=== PATIENT | male | born 2000 | race Caucasian/White ===

== ENCOUNTER 2023-06-25 01:24 | Emergency (ER) | payer BC, SELFPAY ==
[2023-06-25 01:26] VITALS: BP 174/114; PULSE 89; RESP 15; TEMP 36.4; O2SAT 100
--- NOTE | 2023-06-25 03:43 | ED.GENADULT ---
HPI - General Adult General Chief complaint: Animal Bite Stated complaint: cat bites to both hands Time Seen by Provider: 06/25/23 03:33 History of Present Illness HPI narrative: Patient 23-year-old gentleman who presents emergency department with chief complaint of cat bites to both hands. Patient reports he was at work and noticed a door open and saw several small cats. The patient reports that he had several scratches and small bites to his hands while interacting with the cats patient reports no large lacerations were unsure of last tetanus status Related Data Home Medications Medication Instructions Recorded Confirmed atorvastatin 20 mg tablet 20 mg PO DAILY 06/25/23 06/25/23 buspirone 10 mg tablet 10 mg PO DAILY 06/25/23 06/25/23 Allergies Allergy/AdvReac Type Severity Reaction Status Date / Time No Known Allergies Allergy Verified 06/25/23 04:16 Review of Systems Review of Systems: A 10 system review of systems was completed on the patient and is negative except for what is stated in the HPI. Nursing and ancillary documentation was reviewed. Exam Narrative: GENERAL: Well-appearing, well-nourished, and in no acute distress. HEAD: Normocephalic, atraumatic. EYES: PERRLA and EOMI. ENT: Nares clear, no rhinorrhea or epistaxis. Mucous membranes moist. NECK: Supple. CHEST: Clear to auscultation. No respiratory distress. HEART: Regular rate and rhythm. No murmur heard. Normal peripheral pulses. ABDOMEN: Soft, nontender, nondistended, normal active bowel sounds. EXTREMITIES: Normal range of motion. No edema. SKIN: Warm, dry, no rash. Multiple abrasions and small puncture wounds to hands NEURO: No focal deficits. Alert and oriented x3. PSYCH: Normal mood and affect. Course Vital Signs Vital signs: Vital Signs Temperature 36.4 C 06/25/23 01:26 Pulse Rate 89 06/25/23 01:26 Respiratory Rate 15 06/25/23 01:26 Blood Pressure 174/114 H 06/25/23 01:26 Pulse Oximetry 100 06/25/23 01:26 Oxygen Delivery Room Air 06/25/23 01:26 Temperature 36.4 C 06/25/23 01:26 Pulse Rate 89 06/25/23 01:26 Respiratory Rate 15 06/25/23 01:26 Blood Pressure 174/114 H 06/25/23 01:26 Pulse Oximetry 100 06/25/23 01:26 Oxygen Delivery Room Air 06/25/23 01:26 Medical Decision Making MDM Narrative Medical decision making narrative: Differential diagnosis includes feline bite, puncture wounds Denies patient was updated on her tetanus status and was started on Augmentin Patient was offered her rabies vaccine and patient has opted to not do rabies vaccine at this time Vital Signs Vital Signs: Vital Signs Temperature 36.4 C 06/25/23 01:26 Pulse Rate 89 06/25/23 01:26 Respiratory Rate 15 06/25/23 01:26 Blood Pressure 174/114 H 06/25/23 01:26 Pulse Oximetry 100 06/25/23 01:26 Oxygen Delivery Room Air 06/25/23 01:26 Temperature 36.4 C 06/25/23 01:26 Pulse Rate 89 06/25/23 01:26 Respiratory Rate 15 06/25/23 01:26 Blood Pressure 174/114 H 06/25/23 01:26 Pulse Oximetry 100 06/25/23 01:26 Oxygen Delivery Room Air 06/25/23 01:26 Discharge Plan Discharge Clinical Impression: Dog bite Patient Disposition: Home, Self-Care Condition: Stable Instructions: Antibiotic Form, Animal Bite (ED) Prescriptions: New amoxicillin-pot clavulanate 875-125 mg tablet 1 tablet PO Q12H 10 Days Qty: 20 0RF No Action buspirone [BuSpar] 10 mg Tablet 10 mg PO DAILY atorvastatin 20 mg Tablet 20 mg PO DAILY Follow-up/Referrals: PHYSICIAN NOT ON STAFF,NONSTAFF [Non-Staff] - Kelby Salguero MD [Physician] - Time of Disposition: 04:10
[2023-06-25] MEDS: TETANUS,DIPHTHERIA,AC PERTUSSIS ADULT (0.5 ML) BOOSTRIX IM (04:17)
[2023-06-25] MEDS: AMOXICILLIN/CLAVULANATE K 875-125 MG TAB 1 TABLET PO (04:18)
[2023-06-25 04:51] VITALS: BP 158/98; PULSE 86; RESP 16; O2SAT 98
== END 2023-06-25 04:52 | disposition home or self-care (01) ==
LOC: ANHED 04:15
PROVIDERS: Emergency Provider Emergency Medicine
DX: S61.452A Open bite of left hand, initial encounter (principal); S61.451A Open bite of right hand, initial encounter; W55.01XA Bitten by cat, initial encounter; Z23 Encounter for immunization
CPT/HCPCS: 90471; 90715; 99283; A9270